=== PATIENT | male | born 2000 | race Caucasian/White ===

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

== ENCOUNTER 2019-01-05 16:27 | Outpatient (RCR) | payer OTHER, SELFPAY ==
--- NOTE | 2019-01-06 08:55 | HP.OTEVAL_ITS ---
Patient's Visit Information JEREMÍAS BARNETT is a 18 year old M, referred to Occupational Therapy by Carlitos Pathak MD, with a diagnosis of right crush injury. Date of Evaluation: 01/05/19 Occupational Therapist: ASHLY Coronado/Dunia, CHT - Subjective Subjective: This 18 year old male was seen for OT eval with dx of right hand crush injury on 11/18/18. pt crushed hand in [facility] suffered laceration/crush injury. pt reports he is doing ok- but states he has concerns with scar and soreness. - Pain right hand 3 Pain Intensity Range: 0, 4, 5 - ROM ROM Comments: right IF PIP -10/85 left 100. right MF PIP 95 left 100. right RF PIP -15/95 left 105. right LF PIP 80 left 95 - Strength Hazmat Tanker Driver: right 115 left 125 Lateral Pinch: right 20 left 24 Tripod Pinch: right 12# left 12# - Sensation Sensation Comments: denies - Quick DASH-Disab of Arm,Shoulder& Hand Quick DASH Score: 25.0000 - Goals Goal:: PT will demo an increase in real estate marketing coordinator strength by 20# to increase independent with basic occupations of daily living to return pt to PLOF by D/C. Goal:: Pt will demo the ability to form a composite fist and extend fingers fully at PIP to return to performing BADLs and IADLS at PLOF by d/c. Goal:: Pt will report pain no greater than 1/10 with use of affected hand with BADLs and IADLs by d/c. - Rehabilitation General Assessment: Pt presents with a decrease in ROM and strength and pain of right hand following a crush injury 11/18/18. 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 Pt would benefit from skilled OT services 1- 2xweek for 3 weeks to return pt to PLOF. Today pt was ed. on scar mtg/desensitization, reverse blocking of PIP, and tendon glide ex. Pt demo understanding and agree to POC. Rehabilitation Potential: Good - Anticipated Interventions Anticipated Interventions: A/AAROM/PROM, Strengthening, Scar Care, Triggerpoint Release, Desensitization, Sensory Retraining, Modalities, Home Program - Visit Plan Frequency: 1x/Week Duration: 4 Weeks TEXT: Thank you for the opportunity to evaluate your patient. For Medicare and Medicare HMO plans, please review the plan of care and approve it. It will need to be FAXED BACK to us at [phone] for Medicare purposes. Please let me know if there are questions or concerns regarding this plan of care. Physician Signature: Date:
--- NOTE | 2019-03-18 19:01 | HP.OT.NRP ---
HP - Discharge Summary - Patient Information JEREMÍAS BARNETT was seen in my office for initial evaluation on 01/05/19. The following Plan of Care was established for this patient: Initial Frequency: 1x/Week Initial Duration: 4 Weeks - Anticipated Interventions Anticipated Interventions: A/AAROM/PROM, Strengthening, Scar Care, Triggerpoint Release, Desensitization, Sensory Retraining, Modalities, Home Program This patient was last seen in our office 01/05/19. Pertinent comments regarding their Occupational therapy will appear below: Pt was seen for eval only his follow up visit was no show- due to time lapse in care pt d/c. At this point I will be discontinuing this patient from occupational therapy. I would be happy to see this patient again in the future if found appropriate by the physician. Thank you! Cleo Barron, OTR/L, CHT
== END 2019-01-05 19:00 | disposition home or self-care (01) ==
LOC: OT 16:27
PROVIDERS: Family Provider Preventive Medicine Occupational Medicine; PCP Preventive Medicine Occupational Medicine; Referring Provider Orthopaedic Surgery; Visit Provider Orthopaedic Surgery
DX: S67.21XD Crushing injury of right hand, subsequent encounter (principal); S61.22 Laceration with foreign body of finger without damage to nail
CPT/HCPCS: 97110; 97166

== ENCOUNTER → 2019-12-29 12:20 | Outpatient (CLI) | payer OTHER, SELFPAY ==
[2019-12-29 13:21] LABS: Erythrocyte Sedimentation Rate 11 mm/hr (0-15)
[2019-12-29 13:45] LABS: CRP < 2.90 mg/L (0.0-3.0)
[2019-12-30 14:08] LABS: Endomysial Antibody IgA Negative (Negative)
[2019-12-30 17:26] LABS: Immunoglobulin A 230 mg/dL (90-386); t-Transglutaminase IgA <2 U/mL (0-3)
== END ==
PROVIDERS: PCP Preventive Medicine Occupational Medicine; Referring Provider Internal Medicine Gastroenterology; Visit Provider Internal Medicine Gastroenterology
DX: R10.31 Right lower quadrant pain (principal)
CPT/HCPCS: 36415; 82784; 83516; 85652; 86140; 86255

== ENCOUNTER → 2020-02-23 08:45 | Outpatient (CLI) | payer OTHER, SELFPAY ==
--- NOTE | 2020-02-23 09:00 | RAD_ITS ---
STUDY: X-RAY - ESOPHAGUS (BARIUM SWALLOW) WITH FLUOROSCOPY REASON FOR EXAM: Male, 19 years old. Reflux, nausea, feels like there is a lump upper/mid hopes TECHNIQUE: 15 view(s) of the esophagus were obtained following swallowing of barium. FLUOROSCOPY TIME (if supplied): (0:24) minutes/seconds COMPARISON: None. FINDINGS: There is no demonstrated esophageal foreign body. There is no demonstrated stricture or mucosal abnormality. Normal gastroesophageal junction, without a demonstrated hiatal hernia. The patient ingested a 12 mm tablet of barium without any difficulty. Normal visualized aortic arch and descending thoracic aorta. Normal visualized pulmonary parenchyma. Normal visualized osseous structures of the thorax. RAD/Esophagus Dual Contrast IMPRESSION: Normal plain film x-ray examination (barium swallow) of the esophagus. Electronically Signed: Brady Silva, at 15:20 EDT , Service support ,
== END ==
PROVIDERS: PCP Preventive Medicine Occupational Medicine; Referring Provider Internal Medicine Gastroenterology; Visit Provider Internal Medicine Gastroenterology
DX: R13.10 Dysphagia, unspecified (principal)
CPT/HCPCS: 74221